=== PATIENT | male | born 1970 ===

== ENCOUNTER 2021-01-16 05:30 | Day surgery (SDC) | payer OTHER ==
[2021-01-16] MEDS ORDERED: PERCOCET 5-3251 EACH PO (09:10)
== END 2021-01-16 16:05 | disposition home or self-care (01) ==
LOC: CIR.AMB 05:30
PROVIDERS: ATTEND Surgery
DX: K64.4 Residual hemorrhoidal skin tags (principal); K64.8 Other hemorrhoids